=== PATIENT | female | born 1950 | race Caucasian/White ===

== ENCOUNTER 2024-05-06 17:26 | Inpatient (IN) ==
[2024-05-06 18:27] LABS: Basophils # (Auto) 0.02 K/mcL (0.00-0.30); Basophils % (Auto) 0.1 % (0.0-2.0); Eosinophils # (Auto) 0 K/mcL (0.00-0.70); Eosinophils % (Auto) 0 % (0.0-7.0); Hematocrit 41.6 % (34.1-44.9); Hemoglobin 13.4 g/dL (11.2-15.7); Lymphocytes # (Auto) 1.45 K/mcL (1.50-4.80); Lymphocytes % (Auto) 8.8 % (15.5-49.0); Mean Cell Volume 96.3 fL (80.0-100.0); Mean Corpuscular HGB Conc 32.2 g/dL (31.0-36.0); Mean Platelet Volume 12.5 fL (8.8-12.5); Monocytes # (Auto) 1.26 K/mcL (0.10-0.90); Monocytes % (Auto) 7.7 % (1.0-12.0); Platelet Count 152 K/mcL (140-440); RBC 4.32 M/mcL (3.59-5.38); WBC 16.4 K/mcL (4.5-11.0)
[2024-05-06 18:39] LABS: Blood Urea Nitrogen 53 mg/dL (8-23); Calcium 9.5 mg/dL (8.6-10.4); Carbon Dioxide 20 mmol/L (22-30); Chloride 100 mmol/L (96-108); Glomerular Filtration Rate 18; Glucose 154 mg/dL (70-105); Potassium 4.5 mmol/L (3.3-5.1); Sodium 136 mmol/L (133-145)
[2024-05-06] MEDS: FUROSEMIDE 40 MG/4 ML VIAL IV ONE (18:59)
[2024-05-06 23:04] LABS: Lymphocytes % 10 % (15-49); Monocytes % (Manual) 5 % (1-12); Platelet Estimate NORMAL (Normal); RBC Morphology NORMAL (Normal); Segmented Neutrophils % 85 % (38-78)
[2024-05-06] MEDS: cefTRIAXone 2 GM in DEXTROSE 5% IN WATER 50 ML IV ONE (23:13)
[2024-05-06] MEDS: AZITHROMYCIN 500 MG in DEXTROSE 5% IN WATER 250 ML IV ONE (23:46)
[2024-05-07] LABS: Appearance,Urine Cloudy (Clear); Bacteria,Urine Many /hpf (0); Bilirubin,Urine Negative (Negative); Color,Urine Yellow; Culture Indicated,Urine Yes; Glucose,Urine (UA) Negative (Negative); Ketones,Urine Negative (Negative); Leukocyte Esterase,Urine Moderate /uL (Negative); Nitrate,Urine Positive (Negative); Protein,Urine Negative (Negative); Urine Blood Trace-intact ery/mcL (Negative); Urine RBC 0 /hpf (0-3); Urine Squamous Epithelial Cell 4 /hpf (0-4); Urine WBC 30 /hpf (0-4); Urobilinogen,Urine Normal
[2024-05-07] MEDS ORDERED: hydrALAZINE 20 MG/ML VIAL IV PRN (01:17)
[2024-05-07] MEDS ORDERED: METOPROLOL TARTRATE 5 MG/5 ML VIAL IV PRN (01:17)
[2024-05-07] MEDS ORDERED: POLYETHYLENE GLYCOL 3350 17 GM PACKET PO PRN (01:17)
[2024-05-07] MEDS ORDERED: ACETAMINOPHEN 160 MG/5 ML ORAL.SOL PO PRN (01:17)
[2024-05-07] MEDS ORDERED: LABETALOL HCL 20 MG/4 ML VIAL IV PRN (01:17)
[2024-05-07] MEDS ORDERED: DEXTROSE 31 GM ORAL.SUSP PO PRN (01:17)
[2024-05-07] MEDS ORDERED: MAGNESIUM SULFATE 2 GM/50 ML BAG IV PRN (01:17)
[2024-05-07] MEDS ORDERED: POTASSIUM CHLORIDE 20 MEQ TABLET PO PRN ×2 (01:17)
[2024-05-07] MEDS ORDERED: POTASSIUM CHLORIDE 40 MEQ in DEXTROSE 5% IN WATER 500 ML IV PRN (01:17)
[2024-05-07] MEDS ORDERED: DEXTROSE 50% 50 ML VIAL IV PRN (01:17)
[2024-05-07] MEDS ORDERED: SENNOSIDES 1 TABLET PO PRN (01:17)
[2024-05-07] MEDS: methylPREDNISolone SOD SUCC 40 MG/ML VIAL IV ONE ×2 (02:11→03:58)
[2024-05-07] MEDS: cefTRIAXone 2 GM in DEXTROSE 5% IN WATER 50 ML IV SCH (04:01)
[2024-05-07] MEDS: AZITHROMYCIN 500 MG in DEXTROSE 5% IN WATER 250 ML IV SCH (04:01)
[2024-05-07 06:48] LABS: ALT/SGPT 17 U/L (<40); AST/SGOT 36 U/L (<32); Albumin 3.3 gm/dL (3.2-5.2); Albumin/Globulin Ratio 0.9 (1.0-2.3); Alkaline Phosphatase 74 U/L (39-117); Bilirubin,Direct 0.4 mg/dL (<0.3); Bilirubin,Total 0.8 mg/dL (0.1-1.0); Blood Urea Nitrogen 56 mg/dL (8-23); Carbon Dioxide 21 mmol/L (22-30); Chloride 98 mmol/L (96-108); Globulin 3.7 gm/dL (2.2-3.7); Glomerular Filtration Rate 19; Glucose 173 mg/dL (70-105); Lactate Dehydrogenase 191 U/L (135-225); Phosphorous 3.9 mg/dL (2.5-4.5); Potassium 4.7 mmol/L (3.3-5.1); Sodium 132 mmol/L (133-145); Triglycerides 76 mg/dL (<150); Uric Acid 10.7 mg/dL (2.5-8.0)
[2024-05-07] MEDS: INSULIN LISPRO 1 UNIT/0.01 ML UNIT SQ SCH (07:26)
[2024-05-07] MEDS: predniSONE 20 MG TABLET PO SCH (07:26)
[2024-05-07 07:40] LABS: Basophils # (Auto) 0.04 K/mcL (0.00-0.30); Basophils % (Auto) 0.3 % (0.0-2.0); Eosinophils # (Auto) 0.01 K/mcL (0.00-0.70); Eosinophils % (Auto) 0.1 % (0.0-7.0); Hemoglobin 12.2 g/dL (11.2-15.7); Lymphocytes # (Auto) 0.62 K/mcL (1.50-4.80); Lymphocytes % (Auto) 4.6 % (15.5-49.0); Mean Cell Volume 98.2 fL (80.0-100.0); Mean Corpuscular HGB Conc 32.1 g/dL (31.0-36.0); Mean Platelet Volume 12.6 fL (8.8-12.5); Monocytes # (Auto) 0.47 K/mcL (0.10-0.90); Monocytes % (Auto) 3.5 % (1.0-12.0); Platelet Count 141 K/mcL (140-440); RBC 3.87 M/mcL (3.59-5.38); Red Cell Distribution Width 13.9 % (11.5-14.5); WBC 13.4 K/mcL (4.5-11.0)
[2024-05-07] MEDS: IPRATROPIUM/ALBUTEROL 3 ML AMPUL.NEB NEB PRN (08:28)
[2024-05-07] MEDS ORDERED: BENZOCAINE/MENTHOL 1 LOZENGE PO PRN (08:53)
[2024-05-07] MEDS: RIVAROXABAN 20 MG TABLET PO SCH (09:10)
[2024-05-07] MEDS: CLOPIDOGREL 75 MG TABLET PO SCH (09:10)
[2024-05-07] MEDS: DOCUSATE SODIUM 100 MG CAPSULE PO SCH (09:10)
[2024-05-07] MEDS: METOPROLOL SUCCINATE 25 MG TAB.XL.24H PO SCH (09:10)
[2024-05-07] MEDS: guaiFENesin/CODEINE 10 ML UDC PO PRN (19:47)
[2024-05-07] MEDS: INSULIN GLARGINE, HUMAN 1 UNIT/0.01 ML SQ SCH (20:13)
[2024-05-08] MEDS: traMADol 50 MG TABLET PO PRN (01:18)
[2024-05-08 06:43] LABS: Basophils # (Auto) 0.01 K/mcL (0.00-0.30); Basophils % (Auto) 0.1 % (0.0-2.0); Eosinophils # (Auto) 0 K/mcL (0.00-0.70); Eosinophils % (Auto) 0 % (0.0-7.0); Hematocrit 36.7 % (34.1-44.9); Hemoglobin 11.9 g/dL (11.2-15.7); Lymphocytes # (Auto) 0.61 K/mcL (1.50-4.80); Lymphocytes % (Auto) 5.3 % (15.5-49.0); Mean Cell Volume 97.1 fL (80.0-100.0); Mean Corpuscular HGB Conc 32.4 g/dL (31.0-36.0); Mean Platelet Volume 12.5 fL (8.8-12.5); Monocytes # (Auto) 0.54 K/mcL (0.10-0.90); Monocytes % (Auto) 4.7 % (1.0-12.0); Neutrophils % (Auto) 89.5 % (38.0-78.0); Platelet Count 153 K/mcL (140-440); RBC 3.78 M/mcL (3.59-5.38); Red Cell Distribution Width 13.5 % (11.5-14.5); WBC 11.4 K/mcL (4.5-11.0)
[2024-05-08 07:06] LABS: ALT/SGPT 26 U/L (<40); AST/SGOT 32 U/L (<32); Albumin 3.2 gm/dL (3.2-5.2); Albumin/Globulin Ratio 1.2 (1.0-2.3); Alkaline Phosphatase 74 U/L (39-117); Bilirubin,Direct 0.2 mg/dL (<0.3); Bilirubin,Total 0.4 mg/dL (0.1-1.0); Blood Urea Nitrogen 72 mg/dL (8-23); Calcium 8.6 mg/dL (8.6-10.4); Carbon Dioxide 20 mmol/L (22-30); Chloride 98 mmol/L (96-108); Globulin 2.7 gm/dL (2.2-3.7); Glomerular Filtration Rate 19; Glucose 296 mg/dL (70-105); Lactate Dehydrogenase 184 U/L (135-225); Phosphorous 4.3 mg/dL (2.5-4.5); Potassium 4.7 mmol/L (3.3-5.1); Sodium 134 mmol/L (133-145); Triglycerides 77 mg/dL (<150); Uric Acid 11.8 mg/dL (2.5-8.0)
[2024-05-08] MEDS: INSULIN GLARGINE, HUMAN 1 UNIT/0.01 ML SQ SCH ×2 (09:01→20:42)
[2024-05-08] MEDS: INSULIN LISPRO 1 UNIT/0.01 ML UNIT SQ SCH (11:42)
[2024-05-08] MEDS: LACTATED RINGERS 1,000 ML IV SCH (13:16)
[2024-05-08] MEDS: IPRATROPIUM/ALBUTEROL 3 ML AMPUL.NEB NEB SCH (15:15)
[2024-05-08] MEDS: CEFDINIR 300 MG CAPSULE PO SCH (20:41)
[2024-05-09 06:46] LABS: ALT/SGPT 35 U/L (<40); AST/SGOT 30 U/L (<32); Albumin 3.4 gm/dL (3.2-5.2); Albumin/Globulin Ratio 1.2 (1.0-2.3); Alkaline Phosphatase 77 U/L (39-117); Bilirubin,Direct < 0.2 mg/dL (0-0.3); Bilirubin,Total 0.4 mg/dL (0.1-1.0); Blood Urea Nitrogen 81 mg/dL (8-23); Calcium 8.6 mg/dL (8.6-10.4); Carbon Dioxide 20 mmol/L (22-30); Chloride 97 mmol/L (96-108); Globulin 2.8 gm/dL (2.2-3.7); Glomerular Filtration Rate 20; Glucose 332 mg/dL (70-105); Lactate Dehydrogenase 205 U/L (135-225); Phosphorous 3.8 mg/dL (2.5-4.5); Potassium 4.3 mmol/L (3.3-5.1); Sodium 133 mmol/L (133-145); Triglycerides 101 mg/dL (<150)
[2024-05-09 06:57] LABS: Basophils # (Auto) 0.02 K/mcL (0.00-0.30); Basophils % (Auto) 0.1 % (0.0-2.0); Eosinophils # (Auto) 0 K/mcL (0.00-0.70); Eosinophils % (Auto) 0 % (0.0-7.0); Hematocrit 37.2 % (34.1-44.9); Hemoglobin 12.3 g/dL (11.2-15.7); Lymphocytes % (Auto) 4.7 % (15.5-49.0); Mean Cell Volume 95.6 fL (80.0-100.0); Mean Corpuscular HGB Conc 33.1 g/dL (31.0-36.0); Mean Platelet Volume 12.8 fL (8.8-12.5); Monocytes # (Auto) 0.82 K/mcL (0.10-0.90); Monocytes % (Auto) 5.5 % (1.0-12.0); Neutrophils % (Auto) 89.2 % (38.0-78.0); Platelet Count 184 K/mcL (140-440); RBC 3.89 M/mcL (3.59-5.38); Red Cell Distribution Width 13.9 % (11.5-14.5); WBC 14.8 K/mcL (4.5-11.0)
[2024-05-09] MEDS: FUROSEMIDE 40 MG TABLET PO SCH (14:37)
[2024-05-09] MEDS: SPIRONOLACTONE 25 MG TABLET PO SCH (14:37)
[2024-05-09] MEDS: INSULIN GLARGINE, HUMAN 1 UNIT/0.01 ML SQ SCH (20:32)
[2024-05-10 07:06] LABS: Basophils # (Auto) 0.01 K/mcL (0.00-0.30); Basophils % (Auto) 0.1 % (0.0-2.0); Eosinophils # (Auto) 0 K/mcL (0.00-0.70); Eosinophils % (Auto) 0 % (0.0-7.0); Hematocrit 39.4 % (34.1-44.9); Hemoglobin 12.6 g/dL (11.2-15.7); Lymphocytes # (Auto) 1.15 K/mcL (1.50-4.80); Lymphocytes % (Auto) 8.8 % (15.5-49.0); Mean Platelet Volume 12.1 fL (8.8-12.5); Monocytes # (Auto) 0.99 K/mcL (0.10-0.90); Monocytes % (Auto) 7.6 % (1.0-12.0); Neutrophils % (Auto) 81.9 % (38.0-78.0); Platelet Count 174 K/mcL (140-440); RBC 4.02 M/mcL (3.59-5.38); Red Cell Distribution Width 14.4 % (11.5-14.5)
[2024-05-10] MEDS: predniSONE 20 MG TABLET PO SCH (07:32)
[2024-05-10 08:09] LABS: ALT/SGPT 29 U/L (<40); AST/SGOT 29 U/L (<32); Albumin 3.2 gm/dL (3.2-5.2); Alkaline Phosphatase 67 U/L (39-117); Bilirubin,Direct < 0.2 mg/dL (0-0.3); Bilirubin,Total 0.5 mg/dL (0.1-1.0); Blood Urea Nitrogen 80 mg/dL (8-23); Calcium 8.9 mg/dL (8.6-10.4); Carbon Dioxide 18 mmol/L (22-30); Chloride 104 mmol/L (96-108); Globulin 3.3 gm/dL (2.2-3.7); Glomerular Filtration Rate 25; Glucose 178 mg/dL (70-105); Lactate Dehydrogenase 261 U/L (135-225); Phosphorous 2.9 mg/dL (2.5-4.5); Potassium 4.2 mmol/L (3.3-5.1); Sodium 139 mmol/L (133-145); Triglycerides 73 mg/dL (<150); Uric Acid 12.3 mg/dL (2.5-8.0)
[2024-05-10 12:36] VITALS: TEMP 98.1
[2024-05-10 14:42] VITALS: O2SAT 94
== END 2024-05-10 14:22 | disposition home health service (06) | DRG 193 ==
LOC: ED 17:26 → ICU 05-07 01:12
PROVIDERS: ADMIT Internal Medicine; ATTEND Internal Medicine